=== PATIENT | female | born 1975 | race Caucasian/White ===

== ENCOUNTER 2018-01-20 05:56 | Day surgery (SDC) | payer BC ==
[~2018-01-20] VITALS: Ht 157.5 cm; Wt 79.4 kg
[2018-01-20] MEDS ORDERED: LIDOCAINE 2% (LOCAL ANESTH.) PF 5ml SDV ONE (07:22)
[2018-01-20] MEDS ORDERED: IODIXANOL 320MG/ML 100ML BTL IV ONE (07:22)
[2018-01-20 08:01] LABS: Basophils # (auto) 0.1 uL; Basophils % (auto) 0.8 % (0.0-2.0); Eosinophils # (auto) 0.1 uL; Eosinophils % (auto) 1.8 % (0.0-7.0); Hemoglobin 13.3 g/dL (12.2-16.2); Lymphocytes # (auto) 1.3 uL; Lymphocytes % (auto) 18.5 % (10.0-50.0); Mean Corpuscular Hemoglobin 31.4 pg (28.0-32.0); Mean Corpuscular Hgb Conc. 33.3 g/dL (32.0-36.0); Mean Corpuscular Volume 94.3 fL (80.0-100.0); Monocytes # (auto) 0.5 uL; Monocytes % (auto) 6.9 % (0.0-12.0); Neutrophils # (auto) 4.9 uL; Nucleated Red Blood Cells % 0.1 %; Platelet Count (auto) 298 10^3/uL (140-450); Red Blood Cells 4.24 10^6/uL (4.0-5.20); Red Cell Distribution Width 13.6 % (11.8-14.3); White Blood Cell 6.8 10^3/uL (4.4-10.8)
[2018-01-20] MEDS ORDERED: CLOPIDOGREL BISULFATE 75 MG TAB PO ONE (08:15)
[2018-01-20] MEDS ORDERED: SODIUM CHLORIDE 0.9% 1,000 ML IV ONE (08:15)
[2018-01-20] MEDS ORDERED: ASPirin 325 MG TAB PO ONE (08:15)
[2018-01-20 08:17] LABS: INR 0.93 (0.9-1.15); Partial Thromboplastin Time 22.2 sec (23.78-33.04)
[2018-01-20 08:18] LABS: Alanine Aminotransferase 23 U/L (13-56); Albumin 3.3 g/dL (3.4-5.0); Anion Gap 8 (5-15); Aspartate Aminotransferase 21 U/L (15-37); BUN/Creatinine Ratio 18.1; Blood Urea Nitrogen 15 mg/dL (7-18); Calcium 7.9 mg/dL (8.5-10.1); Carbon Dioxide 23 mmol/L (21-32); Chloride 108 mmol/L (98-107); GFR African American 96 mL/min; GFR Non-African American 80 mL/min; Glucose 99 mg/dL (74-106); Potassium 4.4 mmol/L (3.5-5.1); Sodium 139 mmol/L (136-145)
[2018-01-20 08:23] LABS: Alkaline Phosphatase 97 U/L (45-117); Bilirubin, Total 0.3 mg/dL (0.2-1.0); Total Protein 7.9 g/dL (6.4-8.2)
[2018-01-20] MEDS ORDERED: METO25TA4 PO (08:30)
[2018-01-20] MEDS ORDERED: NITR0.4S29 SL (08:30)
[2018-01-20] MEDS ORDERED: ASPI-231 PO (08:30)
[2018-01-20] MEDS ORDERED: PRAS10TA8 PO (08:30)
[2018-01-20] MEDS ORDERED: ATOR40TA52 PO (08:30)
[2018-01-20 08:34] VITALS: BP 129/79
[2018-01-20] MEDS ORDERED: MIDAZOLAM HCL 1MG/1ML-2 ML VIAL ONE (10:01)
[2018-01-20] MEDS ORDERED: fentaNYL CITRATE 100 MCG/2 ML VL ONE (10:01)
[2018-01-20] MEDS ORDERED: ANGIOMAX 250 MG VIAL IV ONE (10:01)
[2018-01-20] MEDS ORDERED: SODIUM CHL 0.9% 0 ML ONE (10:01)
[2018-01-20] MEDS ORDERED: VERAPAMIL 2.5MG/ML INJ 2ML VIAL IV ONE (10:30)
[2018-01-20] MEDS ORDERED: HEPARIN SODIUM (PORCINE) 5000 UNITS/ML 1ML VIAL ONE (10:42)
== END 2018-01-20 12:35 | disposition home or self-care (01) ==
LOC: ER 06:08 → CATH 09:21
PROVIDERS: ATTEND Internal Medicine
DX: I20.0 Unstable angina (principal); I99.8 Other disorder of circulatory system; R94.39 Abnormal result of other cardiovascular function study; Z91.040 Latex allergy status; I25.2 Old myocardial infarction; Z95.5 Presence of coronary angioplasty implant and graft; Z79.82 Long term (current) use of aspirin; Z79.899 Other long term (current) drug therapy
CPT/HCPCS: 36415; 71046; 80053; 81025; 83735; 83880; 84443; 84484; 85025; 85610; 85730; 93005; 93458; 99152; A6257; J2001; J2250; Q9967